=== PATIENT | female | born 1985 | race Caucasian/White ===

== ENCOUNTER 2022-07-27 10:29 | Emergency (ER) | payer BC ==
[2022-07-27] MEDS ORDERED: Ciprofloxacin 500 MG Tab PO ONE (10:30)
[2022-07-27] MEDS ORDERED: Phenazopyridine 95 MG Tab PO ONE (10:30)
[2022-07-27] MEDS ORDERED: cefTRIAXone 1 GM, Lidocaine 1% 2.1 ML IM ONE ×2 (11:25)
[2022-07-27] MEDS ORDERED: Phenazopyridine 95 MG Tab ONE (11:43)
[2022-07-27] MEDS ORDERED: Ciprofloxacin 500 MG Tab ONE (11:43)
== END 2022-07-27 11:55 | disposition home or self-care (01) ==
LOC: DL.ED 10:29
DX: N30.01 Acute cystitis with hematuria (principal)
CPT/HCPCS: 81001; 81025; 87086; 99283; A9270-GY; J0696